=== PATIENT | male | born 1960 | race Caucasian/White ===

== ENCOUNTER → 2024-09-18 06:32 | Day surgery (SDC) | payer OTHER, SELFPAY ==
--- NOTE | 2024-09-16 14:58 | PTCARENOTE ---
Pt was sent for cardiac clearance by Dr. Sanchez for swelling in his ankles to rule out CHF. Pt had his appt today with Dr. Daigle at [place]. He is sending him for and US of the LE's to rule out DVT. It is scheduled at [facility]
for 0800 09/17. Pt has swelling in both legs, right greater than left.
[2024-09-18] VITALS (12 sets, daily range): BP systolic 120–220; BP diastolic 76–118
[2024-09-18] MEDS: NORMOSOL-R/PLASMALYTE-A 1000 IV (18:00)
[2024-09-18 18:12] LABS: Hematocrit 40.9 % (39.0-52.0); Hemoglobin 13.5 g/dL (13.0-18.0); Mean Corpuscular Hgb 28.7 pg (27.0-31.0); Mean Corpuscular Volume 86.8 fL (80.0-94.0); Mean Platelet Volume 9.2 fL (7.4-10.4); Platelet Count 228 10^3/uL (130-400); Red Blood Cell Count 4.71 10^6/uL (4.70-6.10); Red Cell Dist. Width 15.8 % (11.5-14.5); White Blood Cell Count 7.7 10^3/uL (4.8-10.8)
[2024-09-18] MEDS: DILAUDID 0.25 MG IV (21:33)
== END | disposition home or self-care (01) ==
LOC: SDS 06:32
PROVIDERS: ATTENDING PHYSICIAN Orthopaedic Surgery Hand Surgery
DX: S54.02XA Injury of ulnar nerve at forearm level, left arm, initial encounter (principal); W26.0XXA Contact with knife, initial encounter
CPT/HCPCS: 64856; 85027